=== PATIENT | male | born 1990 | race Hispanic/Latino ===

== ENCOUNTER 2022-03-20 21:07 | Emergency (ER) | payer SELFPAY ==
[2022-03-20 21:10] VITALS: BP 127/76; PULSE 63; RESP 17; TEMP 36.3; O2SAT 100
[2022-03-20] MEDS: ONDANSETRON INJ 4 MG/2 ML VIAL IV PUSH (21:36)
[2022-03-20] MEDS: MECLIZINE HCL 25 MG TABLET PO (21:43)
--- NOTE | 2022-03-20 22:30 | ED.DIZZY ---
HPI - Dizziness General Chief Complaint: Dizziness Stated Complaint: dizziness, tremors, nauseated Time Seen by Provider: 03/20/22 21:14 Source: patient History of Present Illness HPI Narrative: 31-year-old male presented to the emergency department for evaluation of cute onset of dizziness. 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 Patient does report over the last few weeks he has had increased pressure in his left ear. Patient denies any other significant past medical history. Related Data Allergies Allergy/AdvReac Type Severity Reaction Status Date / Time No Known Allergies Allergy Verified 03/20/22 21:16 Review of Systems Review of Systems: CONSTITUTIONAL: Denies fever, chills, or sweats. EYES: Denies visual changes, redness, or discharge. ENT: Denies rhinorrhea, congestion, sore throat, or otalgia. CARDIOVASCULAR: Denies chest pain, palpitations, or edema. RESPIRATORY: Denies cough or dyspnea. GASTROINTESTINAL: Denies abdominal pain, nausea, vomiting, or diarrhea. GENITOURINARY: Denies dysuria or hematuria. SKIN: Denies rash or itching. MUSCULOSKELETAL: Denies back pain, joint pain, or myalgia. NEUROLOGIC: Vertigo and dizziness Exam Narrative: APPEARANCE: Well appearing, no pain, no distress, well-nourished. HEAD: normocephalic, atraumatic. EYES: PERRLA/EOMI, conjunctivae clear. Vertigo induced when sitting up NOSE: Normal no drainage EARS:TMS clear with good light reflex. Normal TMs bilaterally NEURO: Alert. Cranial nerves II through XII intact. Grossly intact SKIN: Warm, dry. Normal Color Course Course Emergency Course: Patient does feel improved with treatment. Patient states the dizziness and vertigo sensation has resolved. Patient denies any current nausea. Patient is resting comfortably. Vital Signs Vital signs: Vital Signs Temperature 97.4 F L 03/20/22 21:10 Pulse Rate 63 03/20/22 21:10 Respiratory Rate 17 03/20/22 21:10 Blood Pressure 127/76 03/20/22 21:10 Pulse Oximetry 100 03/20/22 21:10 Temperature 97.4 F L 03/20/22 21:10 Pulse Rate 65 03/20/22 22:59 Respiratory Rate 18 03/20/22 22:59 Blood Pressure 116/74 03/20/22 22:59 Pulse Oximetry 99 03/20/22 22:59 Discharge Plan Discharge Clinical Impression: Benign paroxysmal positional vertigo Patient Disposition: Home, Self-Care Condition: Stable Instructions: Antibiotic Form, Benign Paroxysmal Positional Vertigo (ED) Additional Instructions: Meclizine as needed for vertigo. Zofran as needed for nausea. You are still a fall risk due to the dizziness so please do not work from heights. If you have any worsening symptoms or if you have any questions or concerns then please call or return to the emergency department. Have close follow-up with your primary care physician. Prescriptions: New ondansetron 4 mg tablet,disintegrating 4 mg PO Q6H PRN (Reason: nausea and vomiting) Qty: 14 RF: 0 meclizine 25 mg tablet 25 mg PO BID PRN (Reason: dizziness) Qty: 20 RF: 0 Follow-up/Referrals: UNKNOWN,DOCTOR [Primary Care Provider] -
[2022-03-20 22:59] VITALS: BP 116/74; PULSE 65; RESP 18; O2SAT 99
== END 2022-03-20 23:00 | disposition home or self-care (01) ==
PROVIDERS: Emergency Provider Emergency Medicine
DX: H81.10 Benign paroxysmal vertigo, unspecified ear (principal)
CPT/HCPCS: 96374; 99284; A9270; J2405